=== PATIENT | male | born 2000 | race Caucasian/White ===

== ENCOUNTER 2022-01-15 12:39 | Emergency (ER) | payer BC, SELFPAY ==
[2022-01-15 12:51] VITALS: BP 108/66; PULSE 60; RESP 18; TEMP 36.8; O2SAT 100; BMI 18.1
--- NOTE | 2022-01-15 13:57 | ED.EYEPROB ---
HPI - Eye Problem General Date Seen: 01/15/22 Chief complaint: Eye Problems Stated complaint: something in right eye Time Seen by Provider: 01/15/22 13:23 Source: patient Limitations: no limitations History of Present Illness HPI Narrative: 21-year-old male presents with foreign body in the right eye. He started having discomfort last evening. He does not remember getting a foreign body in his eye. He does work doing auto body work. He does wear safety glasses. He think it is possible that a foreign body got in there when he was taking his shirt off from work. He has no other eye problems. He does not wear corrective lenses or contact lenses. He has no visual problems. He has no known drug allergies. He is otherwise healthy. Related Data Home Medications Medication Instructions Recorded Confirmed diphenhydramine HCl 25 mg capsule 25 mg PO Q6H PRN 01/15/22 01/15/22 (Benadryl) Allergies Allergy/AdvReac Type Severity Reaction Status Date / Time No Known Drug Allergies Allergy Verified 01/15/22 12:55 Review of Systems Narrative: No recent illness. Exam Narrative: Exam Narrative: Inspection of the eye shows conjunctival injection in the right and not in the left eye. He has no obvious trauma. There is no obvious foreign body on my initial inspection without magnification. His right eye at the 3 o'clock position has a tiny (1 mm) metallic foreign body imbedded in the cornea, a few mm from the central cornea. No other foreign body is seen. Slit lamp examination is done. Tetracaine topical anesthetic and fluorescein staining or done to better visualize the eye. Foreign body with slight rust around it suggestive of metallic foreign body identified as above. Using a 30 gauge needle as able to remove that foreign body without difficulty. Repeat inspection with slit lamp did not show any residual foreign body. Minimal corneal abrasion from the removal site noted. Const: Vital Signs, click to edit/add: Vital Signs - 24 hr 01/15/22 12:51 Temperature 98.2 F Pulse Rate [Left P ulse Oximeter] 60 Respiratory Rate 18 Blood Pressure [Le ft Upper Arm] 108/66 Pulse Oximetry 100 Documenting provider has reviewed patient's vital signs: yes Course Vital Signs Vital signs: Initial Vital Signs Temperature 98.2 F 01/15/22 12:51 Temperature Source Temporal Artery Scan 01/15/22 12:51 Pulse Rate 60 01/15/22 12:51 Respiratory Rate 18 01/15/22 12:51 Blood Pressure 108/66 01/15/22 12:51 Blood Pressure Mean 80 01/15/22 12:51 Blood Pressure Position Sitting 01/15/22 12:51 Pulse Oximetry 100 01/15/22 12:51 Oxygen Delivery Method 01/15/22 12:51 Vital Signs Temperature 98.2 F 01/15/22 12:51 Pulse Rate 60 01/15/22 12:51 Respiratory Rate 18 01/15/22 12:51 Blood Pressure 108/66 01/15/22 12:51 Pulse Oximetry 100 01/15/22 12:51 Temperature 98.2 F 01/15/22 12:51 Pulse Rate 60 01/15/22 12:51 Respiratory Rate 18 01/15/22 12:51 Blood Pressure 108/66 01/15/22 12:51 Pulse Oximetry 100 01/15/22 12:51 Discharge Plan Discharge Clinical Impression: Acute foreign body of right cornea Additional Instructions: Apply 1 eyedrops 4 times a day until your eye is better. Your eye should feel better tomorrow. See your eye doctor if your eye is not back to normal in 2-3 days. Prescriptions: No Action diphenhydramine HCl [Benadryl] 25 mg capsule 25 mg PO Q6H [id number] Follow Up/Referrals: Guy Murphy MD [Primary Care Provider] - Procedures Foreign Body Removal Site: right (eye)
[2022-01-15] MEDS: GENTAMICIN 0.3% OPHTH 1 DROP EYE-RIGHT (15:55)
[2022-01-15] MEDS: TETRACAINE 0.5% OPHTH 2 DROP EYE-RIGHT (15:55)
== END 2022-01-15 14:45 | disposition home or self-care (01) ==
PROVIDERS: Emergency Provider Family Medicine; PCP Family Medicine
DX: T15.01XA Foreign body in cornea, right eye, initial encounter (principal); S00.251A Superficial foreign body of right eyelid and periocular area, initial encounter; X58.XXXA Exposure to other specified factors, initial encounter; Y93.89 Activity, other specified
CPT/HCPCS: 10120; 65222; 99282; 99283